=== PATIENT | female | born 1990 | race Two or more races ===

== ENCOUNTER 2016-12-02 18:11 | Emergency (ER) | payer OTHER ==
[2016-12-02 18:33] VITALS: BP 86/62; PULSE 85; TEMP 99.1; BMI 26.5
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
[2016-12-02] MEDS ORDERED: ACETAMINOPHEN 325 MG TABLET (FP) PO ONE (18:36)
== END 2016-12-02 18:47 | disposition home or self-care (01) ==
LOC: FER 18:11
DX: S00.83XA Contusion of other part of head, initial encounter (principal); V43.52XA Car driver injured in collision with other type car in traffic accident, initial encounter; Y93.89 Activity, other specified; Y92.410 Unspecified street and highway as the place of occurrence of the external cause; Z87.891 Personal history of nicotine dependence
CPT/HCPCS: 99282-25